=== PATIENT | female | born 1990 | race Caucasian/White ===

== ENCOUNTER 2020-10-20 16:25 | Outpatient (CLI) | payer OTHER, SELFPAY ==
[2020-10-20 17:16] LABS: SARS-CoV-2 Ag Negative (Negative)
[2020-10-22 19:48] LABS: SARS-CoV-2 RNA PCR Negative
== END 2020-10-20 16:26 | disposition home or self-care (01) ==
PROVIDERS: PCP Internal Medicine; Visit Provider Nurse Practitioner Family
DX: R05 Cough (principal); J06.9 Acute upper respiratory infection, unspecified; Z20.822 Contact with and (suspected) exposure to COVID-19
CPT/HCPCS: 87426; C9803; U0003; U0005